=== PATIENT | female | born 1965 | race Caucasian/White ===

== ENCOUNTER → 2018-04-28 | Day surgery (SDC) | payer OTHER ==
[~2018-04-28] VITALS: Ht 154.9 cm; Wt 80.3 kg
[~2018-04-28] MED LIST: AMLO5TAB7 PO; BUPIVAC MPF-EPI 0.5%-1:200000 30 ML VIAL. ONE; CARV3.1210 PO; CLON1TAB11 PO; DESFLURANE 31 TO 60 MINUTES IH ONE; DEXAMETHASONE SOD PHOS 20 MG/5 ML VIAL. ONE; FLUO40CA2 PO; GEMF600T8 PO; GLIM4TAB2 PO; GLYCOPYRROLATE 1 MG/5 ML VIAL. ONE; HYDROmorphone 2 MG/ML VIAL IV PRN; INSU100I30 SQ; IV RINGERS,LACTATED 1000ML 1,000 ML IV SCH; KETOROLAC 30 MG/ML INJ FOR OR. INJ ONE; LIDOCAINE 1% PF 2 ML VIAL. ID PRN; LIDOCAINE 2% PF Vial for OR 5 ML VIAL. ONE; LINA5TAB PO; LISI1TAB5 PO; LOSA-73 PO; LOSA1TAB22 PO; METF500T16 PO; MIDAZOLAM HCL/PF 2 MG/2 ML VIAL. ONE; MORPHINE SULFATE 2 MG/ML VIAL. IV PRN; NEOSTIGMINE METHYLSULFATE 5 MG/5 ML SYRINGE. ONE; ONDANSETRON PF 4 MG/2 ML VIAL. IV PRN; ONDANSETRON PF 4 MG/2 ML VIAL. ONE; OXYC1TAB15 PO; PHENYLEPHRINE 10 MG/ML VIAL. ONE; PHENYLEPHRINE in 0.9% NACL PF 1 MG/10 ML SYRINGE. IV ONE; POTA10TA31 PO; PRAV40TA2 PO; PROCHLORPERAZINE 10 MG/2 ML VIAL. IV PRN; PROPOFOL 20 ML IV ONE; ROCURONIUM 50 MG/5 ML VIAL. ONE; SUCCINYLCHOLINE 200 MG/10 ML VIAL. ONE; TRAM50TA PO; VENTOLIN HFA18 GM INH; ceFAZolin 2GM PREMIX 2 GM/50 ML BAG IV ONE; ePHEDrine PF IN SALINE 50 MG/5 ML DISP.SYRIN IV ONE; fentaNYL PF VIAL 100 MCG/2 ML VIAL IV PRN; fentaNYL PF VIAL 100 MCG/2 ML VIAL ONE; oxyCODONE/APAP 5/325 1 TAB TABLET PO ONE
--- NOTE | 2018-04-28 09:49 | PDOC4 ---
Operative Note Operative Note Date: 04/28/2018 Preoperative diagnosis: Ventral hernia incarcerated Postoperative diagnosis: Same Procedure: Robotic-assisted laparoscopic ventral hernia repair with mesh Surgeon: Melvin Specimen: None Dictation: Patient is a 52-year-old female was complained of a abdominal bulge painful just above the umbilicus. The procedure of robotic-assisted laparoscopic ventral hernia repair with mesh was explained to the patient details benefits were also discussed including bleeding infection injury to intra-abdominal contents possibly necessitating further open operations. Patient seemed understanding table verbal and written consent had the procedure performed. Patient was taken to the operating room placed in supine position general anesthesia was initiated once patient was sleeping better abdomen was prepped and draped usual sterile fashion using ChloraPrep and area in the left upper quadrant was injected with quarter percent Marcaine with epinephrine incision by 11 blade scalpel and using a 5 mm Visiport was placed under direct visualization into the abdomen and a pneumoperitoneum was created since his complete 5 mm camera was placed within the abdomen which was inspected showed a small ventral hernia with incarcerated omentum. A 8 mm [place] port was placed in left mid abdomen and an 8 mm [place] port was placed in the left lower abdomen the 5 mm visible was changed out for 8mm da [place]ila port. The da Aguila robot was brought in and docked all port sites surgeon went to the robotic console using a grasper and Endo Monty scissors the omentum was reduced from the hernia defect the hernia defect was then closed using a 20 prominent V lock suture. Ventral light mesh was then placed over the hernia repair of this was sewn into place with absorbable 20V lock suture. Once this was complete the pneumoperitoneum was reduced eventually robot undocked all ports removed the port sites were all closed for septic and her Monocryl mass all Steri-Strips and island dressings were applied. Patient was awakened and expanded in the operating room taken to recovery in stable condition all sponge instrument needle counts listed as correct estimated blood loss 5 mL ANN RODRÍGUEZ MD Apr 28, 2018 9:49 am
--- NOTE | 2018-04-28 09:50 | DISCH ---
DISCHARGE INSTRUCTIONS Condition on Discharge Condition on Discharge: Stable Activity After Discharge Activity Instructions for Disc: Avoid exertion Other activity instructions: no lifting greater than 20 pounds for 2 weeks Diet after Discharge Diet after Discharge: Regular Wound Incision Care Other wound/incision instructi: May shower in 24 hours Contacting the after DC Call your doctor for: If your condition worsens Follow-Up Follow up with: Dr. Rodríguez in 2 weeks ANN RODRÍGUEZ MD Apr 28, 2018 9:50 am
[2018-04-28 11:40] VITALS: BP 120/65
== END | disposition home or self-care (01) ==
LOC: SURG 06:42
PROVIDERS: ATTEND Surgery
DX: K43.6 Other and unspecified ventral hernia with obstruction, without gangrene (principal); I10 Essential (primary) hypertension; F32.9 Major depressive disorder, single episode, unspecified; Z79.899 Other long term (current) drug therapy; Z98.51 Tubal ligation status
CPT/HCPCS: 49653; 82962; A7015; C1781; J0690; J1100; J1885; J2001; J2250; J2405; J2704; J2710; J3010; J3490; S2900; J0330; J2370